=== PATIENT | female | born 1955 | race Caucasian/White ===

== ENCOUNTER 2018-03-03 07:07 | Day surgery (SDC) | payer OTHER ==
[~2018-03-03 07:07] MED LIST: DIAZEPAM 5 MG TAB PO; DIPHENHYDRAMINE 50 MG CAP PO; FAMOTIDINE 20 MG TAB PO; SOD CHLORIDE 0.45% 1,000 ML IV
[2018-03-03 08:40] LABS: ADD MAN DIFF? NO
[2018-03-03 08:42] LABS: BASOPHILS % 0.5 % (0.0-2.0); EOSINOPHILS # 0.2 10^3/ul (0.0-0.5); EOSINOPHILS % 3.7 % (0.0-7.0); HEMATOCRIT 41.2 % (37.0-47.0); HEMOGLOBIN 13.9 g/dl (12.0-16.0); LYMPHOCYTES # 2.3 10^3/ul (0.8-2.9); LYMPHOCYTES % 38.5 % (15.0-51.0); MEAN CORPUSCULAR HEMOGLOBIN 30.8 pg (29.0-33.0); MEAN CORPUSCULAR HGB CONC 33.7 g/dl (32.0-37.0); MEAN CORPUSCULAR VOLUME 91.4 fl (82.0-101.0); MEAN PLATELET VOLUME 9.9 fl (7.4-10.4); MONOCYTE # 0.6 10^3/ul (0.3-0.9); MONOCYTES % 10.4 % (0.0-11.0); NEUTROPHIL # 2.8 10^3/ul (1.6-7.5); NEUTROPHILS % 46.7 % (39.0-77.0); PLATELET COUNT 191 10^3/UL (140-415); RED BLOOD COUNT 4.51 10^6/ul (4.20-5.40); RED CELL DISTRIBUTION WIDTH 12.8 % (11.5-14.5)
[2018-03-03 09:00] LABS: ANION GAP 16 (8-16); CARBON DIOXIDE 27 mmol/L (21-31); CHLORIDE 104 mmol/L (97-110); GLUCOSE 104 mg/dl (70-220)
[2018-03-03 09:01] LABS: BLOOD UREA NITROGEN 18 mg/dl (7-20); CALCIUM 9.1 mg/dl (8.4-10.2); CREATININE 0.78 mg/dl (0.44-1.00); POTASSIUM 3.7 mmol/L (3.5-5.1); SODIUM 143 mmol/L (135-144)
[2018-03-03 09:11] LABS: INR 0.96; PROTIME 12.9 Sec (11.9-14.9)
[2018-03-03 09:12] LABS: PARTIAL THROMBOPLASTIN TIME 30.2 Sec (25.0-35.0)
[2018-03-03] MEDS ORDERED: LIDOCAINE 1% (MDV) 10 ML INJ (09:56)
[2018-03-03] MEDS ORDERED: MIDAZOLAM 1 MG/ML 2 ML INJ (09:56)
[2018-03-03] MEDS ORDERED: IODIXANOL LOCM 100 ML BTL (09:56)
[2018-03-03] MEDS ORDERED: NITROGLYCERIN (IC) 100 MCG/ML INJ (09:57)
[2018-03-03] MEDS ORDERED: VERAPAMIL 5 MG INJ (09:57)
[2018-03-03] MEDS ORDERED: HEPARIN 1000 UNITS/ML 10 ML INJ (09:57)
[2018-03-03] MEDS ORDERED: FENTAnyl 50 MCG/ML VIAL (09:57)
[2018-03-03] MEDS ORDERED: SOD CHLORIDE 0.9% 1,000 ML IV (10:46)
[2018-03-03] MEDS ORDERED: ACETAMINOPHEN 325 MG TAB PO (11:00)
[2018-03-03] MEDS ORDERED: ONDANSETRON 4 MG INJ IV (11:00)
[2018-03-03] MEDS ORDERED: morphine 2 MG INJ IV (11:00)
[2018-03-03] MEDS ORDERED: AL HYDROX/MG HYDROX/SIMETH 30 ML CUP PO (11:00)
== END 2018-03-03 15:28 | disposition home or self-care (01) ==
LOC: SDS 07:07
DX: I25.10 Atherosclerotic heart disease of native coronary artery without angina pectoris (principal); I34.0 Nonrheumatic mitral (valve) insufficiency; I10 Essential (primary) hypertension; E78.5 Hyperlipidemia, unspecified
CPT/HCPCS: 71045; 80048; 85025; 85610; 85730; 93005; 93458